=== PATIENT | female | born 1985 | race Caucasian/White ===

== ENCOUNTER 2020-04-16 10:17 | Outpatient (CLI) | payer OTHER, SELFPAY | END 2020-04-16 16:43 | disposition home or self-care (01) | LOC: PHYS 10:19 | PROVIDERS: PCP Internal Medicine; Referring Provider Internal Medicine; Visit Provider Internal Medicine | DX: G62.9 Polyneuropathy, unspecified (principal) | CPT/HCPCS: 95886; 95911 ==